=== PATIENT | female | born 1950 | race Hispanic/Latino ===

== ENCOUNTER 2017-06-18 12:23 | Outpatient (CLI) | payer MEDICARE ==
--- NOTE | 2017-06-18 20:00 | RAD ---
DOUBLE CONTRAST ESOPHAGRAM 06/18/17 INDICATION: Dysphagia with difficulty swallowing. FINDINGS: There is some moderate to prominent hiatal hernia. There is a persistent narrowing from the GE junct ion that does not significantly obstruct a 12.5 mm barium tablet nor the liquid barium. The patient has multiple small pseudodiverticula seen just proximal to the area of narrowing at the GE junction within the distal esophagus. There is subtle slight irregularity involving the posterior mucosa of t he distal esophagus and the mucosa at the level of the GE junction. This may reflect changes of meta plasia; however, a superficial mucosal abnormality such as malignancy cannot be entirely excluded. N o additional focal abnormality is evident. The patient had multiple episodes of prominent gastroesop hageal reflux up to the level of the cervicothoracic junction during the examination. IMPRESSION: 1. Severe gastroesophageal reflux. 2. Focal area of persistent narrowing at the GE junction with proximal pseudodiverticula involv ing the distal esophagus. There is question of some mucosal irregularity along the posterior aspect of the distal esophagus and GE junction which may reflect metaplastic changes versus mucosal maligna ncy. Recommend further evaluation with an EGD. 3. Moderate hiatal hernia. POS: MICHELE
== END 2017-06-18 12:24 | disposition home or self-care (01) ==
LOC: RAD 12:23
PROVIDERS: ATTEND Family Medicine
DX: R13.10 Dysphagia, unspecified (principal); K21.9 Gastro-esophageal reflux disease without esophagitis; K44.9 Diaphragmatic hernia without obstruction or gangrene
CPT/HCPCS: 74220

== ENCOUNTER 2017-08-27 07:36 | Outpatient (CLI) | payer MEDICARE, MEDICAID ==
--- NOTE | 2017-08-27 11:04 | CT ---
CT THORAX WITH CONTRAST: 08/27/2017 HISTORY: A 67-year-old female with sliding hiatal hernia, ICD-10:K44.9; erosive esophagitis, ICD-10:K20.8; dysphagia, ICD-10:R13.10; gastroesophageal reflux disease severe, ICD-10:K21.9. Barium study showed concern for possible mucosal malignancy, but biopsies on two EGDs have been negative. Evaluate for a ny masses. COMPARISON: No prior chest CTs. TECHNIQUE: IV iodinated contrast media: 70 mL of Isovue 370. FINDINGS: There is a levoscoliosis of the mid-thoracic spine and dextroscoliosis of the lumbar spine. There is a 2 x 2.5 x 2.5 cm simple hepatic cyst straddling hepatic segments 3 and 4B. No adrenal mass or spl enomegaly. Approximately 20% of the stomach herniates superior to the diaphragm into the posterior i nferior mediastinum. There is an approximately 0.5 x 1 x 1.5 cm (axial image 33 of 64, series 2; cor onal image 75 of 131, series 601) soft tissue density extraluminal nodule in the posterior inferior m ediastinum, slightly superior to the level of the hiatal hernia, and abutting the left serosal surfac e of the thoracic esophagus, anterior to the descending thoracic aorta, and posterior to the left atr ium of the heart. This could be an esophageal diverticulum. Another possibility is an mildly enlarg ed lymph node. Slightly inferior to that, there is an approximately 1 x 0.5 cm soft tissue density e xtraluminal nodule in the lower mediastinum which is probably a mildly enlarged lymph node (coronal i mage 76 of 131, series 601). There are no other enlarged mediastinal lymph nodes. There is no hilar lymphadenopathy. Tortuosity of thoracic aorta without aneurysm. No pleural effusion or pericardial effusion. Compensatory dextroscoliosis of the upper lumbar spine. The lungs are clear. IMPRESSION: 1. Small to moderate sized hiatal hernia, involving approximately 20% of the stomach. 2. In addition to a mildly enlarged mediastinal lymph node just superior to the hiatal hernia, there is another soft tissue density nodule, measuring 2.5 cm, which could either represent an esophageal d iverticulum or another mildly enlarged mediastinal lymph node. 3. S-shaped scoliosis. JN R POS: SJAlanna
[2017-08-27] MEDS ORDERED: Iopamidol 370 76% 100 ML VIAL ONE (11:44)
== END 2017-08-27 07:37 | disposition home or self-care (01) ==
LOC: CT 07:36
PROVIDERS: ATTEND Family Medicine
DX: K21.0 Gastro-esophageal reflux disease with esophagitis (principal); K44.9 Diaphragmatic hernia without obstruction or gangrene; R13.10 Dysphagia, unspecified; R59.0 Localized enlarged lymph nodes; M41.9 Scoliosis, unspecified
CPT/HCPCS: 71260

== ENCOUNTER 2020-02-09 01:37 | Outpatient (CLI) | payer MEDICARE, MEDICAID, OTHER ==
[2020-02-09 22:20] LABS: SARS-CoV-2 MS2 Positive; SARS-CoV-2 N Gene Negative; SARS-CoV-2 S Gene Negative; SARS-CoV-2 orf1ab Negative
== END 2020-02-09 01:38 | disposition home or self-care (01) ==
LOC: ERS 01:37
PROVIDERS: ATTEND Family Medicine
DX: Z01.812 Encounter for preprocedural laboratory examination (principal); Z11.59 Encounter for screening for other viral diseases; R13.19 Other dysphagia
CPT/HCPCS: 87635; U0003

== ENCOUNTER 2020-02-11 07:52 | Outpatient (CLI) | payer MEDICARE ==
--- NOTE | 2020-02-11 12:18 | RAD ---
Barium swallow esophagram single column: 02/11/2020 HISTORY: 69-year-old female with ICD-10: "R 13.19, other dysphagia" COMPARISON: 06/18/2017 TECHNIQUE: Hi Teacher radiograph obtained. Upright administration of effervescent granules and thick liquid barium. U pright administration of barium tablet with water. Prone RIVERA straw administration of thin liquid barium. FINDINGS: Again noted is the herniation of approximately 20% of the stomach into the lower thoracic cavity. The previously demonstrated stricture at the junction between the esophagus and the herniated portion of stomach, is again noted, such that the barium tablet lodges in this location, and does not pass in to the stomach throughout the entire study. Tiny protrusions of the lumen externally from the lumen, are again demonstrated. Severe gastroesophageal reflux is again demonstrated. No gross abnorma lity of motility or distensibility of the rest of the esophagus. Hi Teacher view demonstrates prominent dextroscoliosis of the upper lumbar spine, and compensatory levoscoliosis of lower thoracic spine. Th ere is significant residue in the vallecula and piriform sinuses after each swallow. IMPRESSION: 1.) Moderate size sliding hiatal hernia. 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 3) severe gastroesophageal reflux. 4) prominent S shaped scoliosis of thoracolumbar spine.
== END 2020-02-11 07:53 | disposition home or self-care (01) ==
LOC: RAD 07:52
PROVIDERS: ATTEND Family Medicine
DX: R13.19 Other dysphagia (principal); K44.9 Diaphragmatic hernia without obstruction or gangrene; K21.9 Gastro-esophageal reflux disease without esophagitis; K22.2 Esophageal obstruction; M41.9 Scoliosis, unspecified
CPT/HCPCS: 74220

== ENCOUNTER 2020-06-20 12:14 | Outpatient (CLI) | payer MEDICARE ==
[2020-06-20] MEDS ORDERED: Iopamidol-370 76% 500 ML 1 ML ONE (13:50)
--- NOTE | 2020-06-20 14:12 | CT ---
CT chest with IV contrast CT abdomen with IV and oral contrast HISTORY: Chest and abdomen pain. Erosive esophagitis. COMPARISON: 08/27/2017. FINDINGS: Lungs are clear. No focal mass, fluid, or pneumothorax. Approximately 30% of the stomach is above the level of the diaphragm, with prominent thickening of th e wall of the herniated portion of the stomach and the entirety of the esophagus. Large amount of oral contrast is present throughout the length of the esophagus. A lymph node immediately left of the distal esophagus is 1.1 cm greatest diameter. A 0.9 cm lymph node lies just to the right of the herniated portion of the stomach barely above the level of the diaphragm. These are stable. Lobular simple cyst at the central aspect of the left liver lobe is 2.6 cm greatest AP diameter on th e axial images, stable. The kidneys, spleen, adrenal glands, and pancreas are within normal limits. S shaped curvature of the thoracic spine is again demonstrated. No evidence of bowel obstruction. The pelvis was not imaged. IMPRESSION : Hiatal hernia has enlarged since the 2017 study, now with approximately 30% of the stomach above the level of the diaphragm. There is prominent thickening of the fuentes of the stomach and gastric fundus. No focal mass is apparent. Paraesophageal lymph nodes, upper limits of normal in size, are stable. Large amount of gastroesophageal reflux. Chronic-type findings are stable.
== END 2020-06-20 12:15 | disposition home or self-care (01) ==
LOC: BICCT 12:14
PROVIDERS: ATTEND Internal Medicine Gastroenterology
DX: K22.10 Ulcer of esophagus without bleeding (principal); K44.9 Diaphragmatic hernia without obstruction or gangrene
CPT/HCPCS: 71260; 74160; 82565; Q9967

== ENCOUNTER 2020-06-27 09:11 | Emergency (ER) | payer MEDICARE, OTHER ==
[2020-06-28 11:36] LABS: SARS-CoV-2 MS2 Positive; SARS-CoV-2 N Gene Negative; SARS-CoV-2 S Gene Negative; SARS-CoV-2 by NAA Not Detected (NotDetected); SARS-CoV-2 orf1ab Negative
== END 2020-06-27 10:05 | disposition home or self-care (01) ==
LOC: ERS 09:11
DX: J02.9 Acute pharyngitis, unspecified (principal); Z20.828 Contact with and (suspected) exposure to other viral communicable diseases; K21.9 Gastro-esophageal reflux disease without esophagitis; Z79.899 Other long term (current) drug therapy
CPT/HCPCS: 99283; U0003; 87635

== ENCOUNTER 2020-12-05 11:57 | Outpatient (CLI) | payer MEDICARE ==
[2020-12-06 04:02] LABS: SARS-CoV-2 PCR by NAA Not Detected (NotDetected)
== END 2020-12-05 11:58 | disposition home or self-care (01) ==
LOC: LABBT 11:57
PROVIDERS: ATTEND Internal Medicine Gastroenterology
DX: Z01.812 Encounter for preprocedural laboratory examination (principal); Z20.822 Contact with and (suspected) exposure to COVID-19
CPT/HCPCS: U0003; U0005; 87635

== ENCOUNTER → 2020-12-08 | Day surgery (SDC) | payer MEDICARE | LOC: ENDO/OP 08:09 | PROVIDERS: ATTEND Internal Medicine Gastroenterology | DX: K21.00 Gastro-esophageal reflux disease with esophagitis, without bleeding (principal) | CPT/HCPCS: 91010 ==

== ENCOUNTER 2020-12-30 10:48 | Outpatient (CLI) | payer MEDICARE ==
[2020-12-30 12:21] LABS: #Eosinphils 0.1 10x3/uL (0.0-0.5); #Monocytes 0.5 10x3/uL (0.0-1.1); #Neutrophils 2.5 10x3/uL (1.5-8.4); %Basophils 0.8 % (0.0-2.0); %Eosinophils 1.2 % (0.0-6.0); %Monocytes 9.9 % (0.0-10.0); %Neutrophils 50.9 % (40.0-75.0); Hemoglobin 10.5 g/dL (12.0-15.5); Mean Corpuscular HGB CONC 29.9 g/dL (32.0-36.0); Mean Corpuscular Hemoglobin 22.6 pg (27.0-33.0); Mean Corpuscular Volume 75.6 fl (81.6-98.3); Mean Platelet Volume 9.8 fl (7.4-10.4); Platelet Count 447 10x3/uL (150-450); RBC Distribution Width 16.3 % (11.5-14.5); Red Blood Cell (RBC) Count 4.64 10x6/uL (3.90-5.03)
[2020-12-30 12:46] LABS: ALT (SGPT) 36 U/L (8-55); AST (SGOT) 37 U/L (5-34); Albumin 4.3 g/dL (3.4-4.8); Alkaline Phosphatase 137 U/L (40-110); Anion Gap 14 mmol/L (10-20); BUN (Urea Nitrogen) 21 mg/dL (9.8-20.1); Bilirubin, Total 0.4 mg/dL (0.2-1.2); Calc. Creatinine Clearance 0 mL/min (70-130); Calcium 9.6 mg/dL (7.8-10.44); Carbon Dioxide 25 mmol/L (23-31); Chloride 104 mmol/L (98-107); Globulin 3.2 g/dL (2.4-3.5); Glucose 98 mg/dL (80-115); Potassium 4.6 mmol/L (3.5-5.1); Protein, Total 7.5 g/dL (5.8-8.1); Sodium 138 mmol/L (136-145)
[2020-12-30 13:10] LABS: Hypochromia SLIGHT = 6-15 cells (100X) (0-5/hpf)
[2020-12-30 13:11] LABS: Platelet Morphology Comment Appears Adequate
[2020-12-30 19:17] LABS: SARS-CoV-2 PCR by NAA Not Detected (NotDetected)
== END 2020-12-30 10:49 | disposition home or self-care (01) ==
LOC: LABBT 10:48
PROVIDERS: ATTEND Surgery
DX: Z01.818 Encounter for other preprocedural examination (principal); K21.9 Gastro-esophageal reflux disease without esophagitis; K22.4 Dyskinesia of esophagus
CPT/HCPCS: 80053; 85025; 93005; U0003; U0005; 87635; 93010

== ENCOUNTER 2021-01-04 05:54 | Observation (INO) | payer MEDICARE ==
[2021-01-03 15:04] VITALS: BMI 26.4
[2021-01-04] MEDS ORDERED: Fentanyl 100 MCG/2 ML VIAL ONE ×3 (06:36→10:07)
[2021-01-04] MEDS ORDERED: Lidocaine 2% Jelly 5 ML TUBE ONE (06:36)
[2021-01-04] MEDS ORDERED: Midazolam HCl 2 mg/2 ml Vial ONE (06:54)
[2021-01-04] MEDS ORDERED: Bupivacaine 0.25% HCL 30 ML VIAL ONE (07:06)
[2021-01-04] MEDS ORDERED: Lidocaine 1% w/Epinephrine 1:100K 20 ML VIAL ONE (07:06)
[2021-01-04] MEDS ORDERED: ePHEDrine Sulfate 50 MG/10 ML VIAL ONE (07:38)
[2021-01-04] MEDS ORDERED: Ondansetron PF 4 MG/2 ML Vial ONE (07:38)
[2021-01-04] MEDS ORDERED: PHENYLEPHRINE-NS 100 MCG/ML 10 ML SYRINGE ONE (07:38)
[2021-01-04] MEDS ORDERED: Lidocaine 1% PF 5 ML VIAL ONE (07:38)
[2021-01-04] MEDS ORDERED: Glycopyrrolate 0.2 MG/ML 5 ML SYRINGE ONE (07:38)
[2021-01-04] MEDS ORDERED: Ketorolac Tromethamine 30 MG/ML VIAL ONE (07:38)
[2021-01-04] MEDS ORDERED: Dexamethasone 20 MG/5 ML VIAL ONE (07:38)
[2021-01-04] MEDS ORDERED: Rocuronium Bromide 10 MG/ML (10ML VIAL) ONE (07:38)
[2021-01-04] MEDS ORDERED: PROPOFOL 200 MG/20 ML VIAL ONE (07:38)
[2021-01-04] MEDS ORDERED: Dextrose 5% in Water 1,000 ML IV PRN (09:08)
[2021-01-04] MEDS ORDERED: hydrALAZINE 20 MG/ML VIAL SLOW IVP PRN (09:08)
[2021-01-04] MEDS ORDERED: Hydrocodone-Acetamin 15 ML UDCUP PO PRN (09:08)
[2021-01-04] MEDS ORDERED: Ondansetron PF 4 MG/2 ML Vial IVP PRN ×2 (09:08→10:16)
[2021-01-04] MEDS ORDERED: Promethazine HCl 25 MG/ML VIAL IM PRN ×3 (09:08→10:16)
[2021-01-04] MEDS ORDERED: Dextrose 50% Abboject 50 ML SYRINGE SLOW IVP PRN (09:08)
[2021-01-04] MEDS ORDERED: diphenhydrAMINE 50 MG/ML VIAL IVP PRN ×2 (09:08→10:16)
[2021-01-04] MEDS ORDERED: Ondansetron HCl/PF 4 MG/2 ML Vial IVP PRN (09:19)
[2021-01-04] MEDS ORDERED: Promethazine HCl 25 MG/ML VIAL SLOW IVP PRN (09:19)
[2021-01-04] MEDS ORDERED: Sodium Chloride 0.9% (PF) 10 ML VIAL FS PRN (10:00)
[2021-01-04] MEDS ORDERED: Naloxone HCl 0.4 mg/ml Vial IV PRN (10:16)
[2021-01-04] MEDS ORDERED: Zolpidem Tartrate 5 MG TAB PO PRN (10:16)
[2021-01-04] MEDS ORDERED: fentaNYL Citrate/PF 2,000 MCG in Sodium Chloride 0.9% 60 ML IV PRN (10:16)
[2021-01-04] MEDS ORDERED: diphenhydrAMINE 25 MG CAP PO PRN (10:16)
[2021-01-04] MEDS ORDERED: diphenhydrAMINE 50 MG/ML VIAL IM PRN (10:16)
[2021-01-04] MEDS ORDERED: Communication Order-Pharmacy FS SCH (10:30)
[2021-01-04] MEDS ORDERED: Ketorolac Tromethamine 30 MG/ML VIAL IVP SCH (12:00)
[2021-01-04] MEDS: Ketorolac Tromethamine 30 MG/ML VIAL IVP SCH ×2 (15:38→20:37)
[2021-01-04] MEDS: D5 1/2 NS w/20 mEq KCL 1,000 ML IV SCH ×2 (17:15→17:34)
[2021-01-05] MEDS: Ketorolac Tromethamine 30 MG/ML VIAL IVP SCH ×2 (03:35→08:46)
[2021-01-05] MEDS: D5 1/2 NS w/20 mEq KCL 1,000 ML IV SCH (03:38)
[2021-01-05] MEDS ORDERED: Enoxaparin Sodium 40 MG/0.4 ML SYRINGE SC SCH (06:00)
[2021-01-05 06:19] LABS: Hemoglobin 9.3 g/dL (12.0-16.0); Mean Corpuscular HGB CONC 31.6 g/dL (32.0-36.0); Mean Corpuscular Hemoglobin 23.6 pg (27.0-31.0); Mean Corpuscular Volume 74.9 fL (78.0-98.0); Red Blood Cell (RBC) Count 3.94 mill/uL (4.20-5.40); White Blood Cell (WBC) Count 10.2 thou/uL (4.8-10.8)
[2021-01-05 06:20] LABS: Mean Platelet Volume 8.3 fL (7.4-10.4); Platelet Count 334 thou/uL (130-400); RBC Distribution Width 14.8 % (11.5-14.5)
[2021-01-05 06:22] LABS: Anion Gap 13 mmol/L (10-20); BUN (Urea Nitrogen) 10 mg/dL (9.8-20.1); Calc. Creatinine Clearance 75 mL/min (70-130); Calcium 8.8 mg/dL (7.8-10.44); Carbon Dioxide 22 mmol/L (23-31); Chloride 102 mmol/L (98-107); Glucose 101 mg/dL (80-115); Potassium 3.9 mmol/L (3.5-5.1); Sodium 133 mmol/L (136-145)
[2021-01-05 06:32] LABS: #Lymphocytes 1.9 thou/uL (1.20-3.40); #Monocytes 0.9 thou/uL (0.11-0.59); #Neutrophils 7.4 thou/uL (1.40-6.50); %Basophils 0.5 % (0.0-1.0); %Eosinophils 0.2 % (0.0-10.0); %Lymphocytes 18.7 % (21.0-51.0); %Monocytes 8.9 % (0.0-10.0); %Neutrophils 71.7 % (42.0-75.0); Hypochromia SLIGHT = 6-15 cells (100X) (0-5/hpf); MDiff Complete? YES
[2021-01-05] MEDS ORDERED: Pantoprazole 40 MG VIAL IVP SCH (09:00)
[2021-01-05 11:52] VITALS: BP 148/95; TEMP 98.1
[2021-01-06] MEDS ORDERED: Enoxaparin Sodium 40 MG/0.4 ML SYRINGE SC SCH (09:00)
== END 2021-01-05 15:23 | disposition home or self-care (01) ==
LOC: SDC 05:54 → INTOOBSV 09:10 → SURG A 09:10
PROVIDERS: ADMIT Surgery; ATTEND Surgery
PROC: 0DV44ZZ Restriction of Esophagogastric Junction, Percutaneous Endoscopic Approach (ICD-10-PCS; principal; 2021-01-04)
DX: K44.9 Diaphragmatic hernia without obstruction or gangrene (principal); K21.9 Gastro-esophageal reflux disease without esophagitis; K22.4 Dyskinesia of esophagus; Z87.891 Personal history of nicotine dependence; Z79.899 Other long term (current) drug therapy
CPT/HCPCS: 43280; 74240; 80048; 85025; 94760; 96372; 96374; 96375 ×2; 96376 ×2; 97139 ×2; G0378 ×2; J3010; 36415; C9113; J0690; J1100; J1650; J1885; J2250; J2405; J2704; J3480; J3490; S0020

== ENCOUNTER 2021-05-26 08:54 | Outpatient (CLI) | payer MEDICARE ==
[2021-05-26 21:10] LABS: SARS-CoV-2 PCR by NAA Not Detected (NotDetected)
== END 2021-05-26 08:55 | disposition home or self-care (01) ==
LOC: LABBT 08:54
PROVIDERS: ATTEND Surgery
DX: Z01.812 Encounter for preprocedural laboratory examination (principal); Z20.822 Contact with and (suspected) exposure to COVID-19
CPT/HCPCS: U0003; U0005

== ENCOUNTER 2021-05-31 09:19 | Outpatient (CLI) | payer MEDICARE | END 2021-05-31 09:20 | disposition home or self-care (01) | LOC: RAD 09:19 | PROVIDERS: ATTEND Surgery | DX: R13.10 Dysphagia, unspecified (principal); K22.5 Diverticulum of esophagus, acquired | CPT/HCPCS: 74220 ==

== ENCOUNTER 2021-06-07 09:15 | Outpatient (CLI) | payer MEDICARE | END 2021-06-07 09:16 | disposition home or self-care (01) | LOC: BICMAMMO 09:15 | PROVIDERS: ATTEND Student in an Organized Health Care Education/Training Program | DX: M81.0 Age-related osteoporosis without current pathological fracture (principal); Z78.0 Asymptomatic menopausal state | CPT/HCPCS: 77080 ==

== ENCOUNTER 2022-05-15 13:47 | Outpatient (CLI) | payer MEDICARE | END 2022-05-15 13:48 | disposition home or self-care (01) | LOC: BICMAMMO 13:47 | PROVIDERS: ATTEND Student in an Organized Health Care Education/Training Program | DX: Z12.31 Encounter for screening mammogram for malignant neoplasm of breast (principal); N63.25 Unspecified lump in the left breast, overlapping quadrants; Z91.89 Other specified personal risk factors, not elsewhere classified | CPT/HCPCS: 77063; 77067 ==

== ENCOUNTER 2022-05-30 11:08 | Outpatient (CLI) | payer MEDICARE | END 2022-05-30 11:09 | disposition home or self-care (01) | LOC: DTY/OP 11:08 | PROVIDERS: ATTEND Internal Medicine Gastroenterology | DX: R63.5 Abnormal weight gain (principal); Z68.26 Body mass index [BMI] 26.0-26.9, adult | CPT/HCPCS: 97802 ==

== ENCOUNTER 2022-06-07 06:59 | Outpatient (CLI) | payer MEDICARE | END 2022-06-07 07:00 | disposition home or self-care (01) | LOC: BICULT 06:59 | PROVIDERS: ATTEND Internal Medicine Gastroenterology | DX: K21.9 Gastro-esophageal reflux disease without esophagitis (principal); M54.6 Pain in thoracic spine; K76.89 Other specified diseases of liver | CPT/HCPCS: 76700 ==

== ENCOUNTER 2022-12-17 13:49 | Outpatient (CLI) | payer MEDICARE | END 2022-12-17 13:50 | disposition home or self-care (01) | LOC: BICULT 13:49 | PROVIDERS: ATTEND Student in an Organized Health Care Education/Training Program | DX: N63.20 Unspecified lump in the left breast, unspecified quadrant (principal) ==

== ENCOUNTER 2023-09-30 08:34 | Outpatient (CLI) | payer MEDICARE | END 2023-09-30 08:35 | disposition home or self-care (01) | LOC: BICMAMMO 08:34 | PROVIDERS: ATTEND Family Medicine | DX: Z12.31 Encounter for screening mammogram for malignant neoplasm of breast (principal); Z13.820 Encounter for screening for osteoporosis; M81.0 Age-related osteoporosis without current pathological fracture; M85.852 Other specified disorders of bone density and structure, left thigh; Z78.0 Asymptomatic menopausal state; Z91.89 Other specified personal risk factors, not elsewhere classified | CPT/HCPCS: 77063; 77067; 77080 ==

== ENCOUNTER 2024-09-09 06:42 | Emergency (ER) | payer MEDICARE ==
[2024-09-09] MEDS ORDERED: Ketorolac Tromethamine 30 MG (1 mL) VIAL ONE (07:21)
[2024-09-09 07:22] LABS: Bilirubin Negative (Negative); Blood, Urine 3+ (Negative); CAUTI Indications for Culture Pelvic or flank pain; Clarity Clear (Clear); Glucose, Urine (Dipstick) Normal (Negative); Ketone, Urine Negative (Negative); Leukocyte 500 Leu/uL (Negative); Nitrite Negative (Negative); Protein, Urine (Dipstick) 70 mg/dL (Neg-Trace); Squamous Epithelial 0-3 HPF (0-3); Urobilinogen Normal mg/dL (Less than 2); WBC/HPF 21-50 HPF (0-3)
[2024-09-09 07:24] LABS: Bacteria/HPF 1+ HPF (None Seen)
[2024-09-09 07:27] LABS: Specific Gravity, Urine 1.003 (1.002-1.036); Urine Culture Reflex Yes Yes; pH, Urine 7.5 (5.0-9.0)
[2024-09-09 07:40] LABS: #Basophils 0.05 10x3/uL (0.0-0.2); %Basophils 0.4 % (0.0-1.0); %Eosinophils 0.6 % (0.0-10.0); %Lymphocytes 16.9 % (21.0-51.0); %Monocytes 6.9 % (0.0-10.0); %Neutrophils 74.8 % (42.0-75.0); Hematocrit 43.9 % (36.0-47.0); Hemoglobin 15.1 g/dL (12.0-16.0); Mean Corpuscular HGB CONC 34.4 g/dL (32.0-36.0); Mean Corpuscular Hemoglobin 30.4 pg (27.0-31.0); Mean Corpuscular Volume 88.5 fL (78.0-98.0); Mean Platelet Volume 9.1 fL (7.4-10.4); Platelet Count 352 10x3/uL (130-400); RBC Distribution Width 12.4 % (11.5-14.5); Red Blood Cell (RBC) Count 4.96 mill/uL (4.20-5.40)
[2024-09-09 07:57] LABS: ALT (SGPT) 11 U/L (8-55); AST (SGOT) 20 U/L (5-34); Alkaline Phosphatase 123 U/L (40-110); Anion Gap 15 mmol/L (10-20); BUN (Urea Nitrogen) 20 mg/dL (9.8-20.1); Bilirubin, Total 0.4 mg/dL (0.2-1.2); Calc. Creatinine Clearance 0 mL/min (70-130); Calcium 9.6 mg/dL (7.8-10.44); Carbon Dioxide 20 mmol/L (23-31); Chloride 108 mmol/L (98-107); Estimated GFR 76; Glucose 101 mg/dL (83-110); Lipase 28 U/L (8-78); Potassium 4.4 mmol/L (3.5-5.1); Sodium 139 mmol/L (136-145)
[2024-09-09 08:11] LABS: Troponin I Less than 0.010 ng/mL (< 0.028)
[2024-09-09] MEDS ORDERED: Sodium Chloride 0.9% 100 ML ONE (09:15)
[2024-09-09] MEDS ORDERED: cefTRIAXone (ROCEPHIN) 1 GM VIAL ONE (09:15)
[2024-09-09] MEDS ORDERED: fentaNYL 50 mcg/mL 1 mL Vial ONE (09:15)
[2024-09-09] MEDS ORDERED: Famotidine/PF 20 mg/2ml Vial ONE (09:16)
== END 2024-09-09 11:20 | disposition home or self-care (01) ==
LOC: ERS 06:42
DX: N10 Acute pyelonephritis (principal); I10 Essential (primary) hypertension
CPT/HCPCS: 74176; 76830; 76856; 80053; 81001; 83605; 83690; 84484; 85025; 87040; 87077; 87086; 87186; 93005; 96361; 96374; 96375; 99284; J0696; J1885; J3010; J3490; 36415